=== PATIENT | female | born 1955 | race Caucasian/White ===

== ENCOUNTER 2017-06-12 11:45 | Emergency (ER) | payer MEDICARE ==
[~2017-06-12] VITALS: Ht 170.2 cm; Wt 55.3 kg
[~2017-06-12 11:45] MED LIST: CEF300 PO; CELLC500PT PO; DILT-106 PO; EST3 PO; LEVO-85 PO; LOSA25TA50 PO; METO25TA23 PO; PRE1 PO; PROG100C PO; TACR5CAP13 PO
[2017-06-12] MEDS ORDERED: TACR5CAP13 PO (11:54)
[2017-06-12] MEDS ORDERED: TACR1CAP15 PO (11:54)
--- NOTE | 2017-06-12 11:55 | ER Report ---
History and Physical Time Seen By MD: 11:54 HPI/ROS CHIEF COMPLAINT: Swelling and erythema to right lower leg HISTORY OF PRESENT ILLNESS: 59-year-old female patient presents to emergency room with implant of swelling and erythema of the right lower leg. Patient states that she's had this for the past few weeks. She states that the redness has seemed to gotten bigger. She states she's done a fair amount of traveling, flying from [place] to [place] and then [place] to [place]. She states she is not having shortness breath, she denies having any chest pain. She states that she is not had any pain with this. She is just noticed that the redness seems to be getting bigger. She denies having fevers, chills, nausea, vomiting or diarrhea. Patient does have a history of kidney transplant and is on prednisone and CellCept. REVIEW OF SYSTEMS: Respiratory: No cough, no dyspnea. Cardiovascular: No chest pain, no palpitations. Gastrointestinal: No vomiting, no abdominal pain. Musculoskeletal: No back pain. Allergies: Coded Allergies: Penicillins (Verified Allergy, Mild, RASH, 06/12/17) Sulfa (Sulfonamide Antibiotics) (Verified Allergy, Mild, RASH, 06/12/17) Tetracyclines (Verified Allergy, Mild, UNKNOWN, 06/12/17) LUPUS FLARE Home Meds Active Scripts Clindamycin Hcl (CLINDAMYCIN HCL) 300 Mg Capsule, 300 MG PO Q6H, #40 CAPSULE Prov:ESME FOX RAILROAD CAR LOADER 06/12/17 Reported Medications Nitrofurantoin Macrocrystal (NITROFURANTOIN) 50 Mg Capsule, 50 MG PO QDAY, CAPSULE 06/12/17 Lisinopril (LISINOPRIL) 5 Mg Tablet, 5 MG PO QDAY, TAB 06/12/17 Tacrolimus (PROGRAF) 1 Mg Capsule, 2 MG PO QPM, CAPSULE 06/12/17 Tacrolimus (PROGRAF) 5 Mg Capsule, 2.5 MG PO QAM, CAPSULE 06/12/17 Diltiazem Hcl (CARTIA XT) 240 Mg Cap.er.24h, 240 MG PO QDAY 01/16/16 Estrogens Conjugated (PREMARIN) 0.3 Mg Tab, 0.3 MG PO QDAY, TAB 03/27/14 Progesterone,Micronized (PROGESTERONE) 100 Mg Capsule, 2.5 MG PO DAILY, CAPSULE 03/27/14 Prednisone (PREDNISONE) 1 Mg Tab, 3 MG PO QDAY, TAB 03/27/14 Mycophenolate Mofetil (CELLCEPT) 500 Mg Tab, 500 MG PO BID, TAB 2 in am and one in pm 03/27/14 Discontinued Reported Medications Losartan Potassium (LOSARTAN POTASSIUM) 25 Mg Tablet, 25 MG PO QDAY 01/16/16 Tacrolimus (PROGRAF) 5 Mg Capsule, 2.5 MG PO BID, CAPSULE 03/27/14 Discontinued Scripts Cefdinir 300 Mg Cap (OMNICEF 300 MG CAP (OR EQUIV)) 300 Mg Capsule, 300 MG PO BID, #14 CAPSULE 0 Refills Prov:SHARON ALEMAN MD 01/16/16 Past Medical/Surgical History Patient has a past medical history of lupus, kidney transplant, rare alcohol use. Patient has surgical history of kidney transplant. Reviewed Nurses Notes: Yes Hx Smoking: No Smoking Status: Never Smoker Hx Substance Use Disorder: No Hx Alcohol Use: Yes (rare) Constitutional Vital Sign - Last 24 Hours 06/12/17 06/12/17 06/12/17 06/12/17 11:50 11:50 11:54 12:00 Temp 98.6 Pulse 90 Resp 16 B/P (MAP) 150/88 177/90 (119) 150/88 (108) 165/93 (117) Pulse Ox 97 O2 Delivery Room Air 06/12/17 06/12/17 06/12/17 06/12/17 12:15 12:30 12:45 13:00 Pulse 85 91 B/P (MAP) 150/98 (115) 161/90 (113) Pulse Ox 96 97 06/12/17 06/12/17 06/12/17 13:15 13:20 13:30 Pulse 90 92 92 B/P (MAP) 174/93 (120) Pulse Ox 97 97 97 Physical Exam General Appearance: The patient is alert, has no immediate need for airway protection and no current signs of toxicity. ENT: Tympanic membranes are pearly-moreno, auditory canals are patent, mucous membranes are moist. Respiratory: Chest is non tender, lungs are clear to auscultation. Cardiac: regular rate and rhythm Gastrointestinal: Abdomen is soft and non tender, no masses, bowel sounds normal. Musculoskeletal: Neck: Neck is supple and non tender. Extremities have full range of motion and are non tender. Skin: No rashes or lesions. The right lower leg is erythematous, warm to the touch, mild tenderness to palpation. DIFFERENTIAL DIAGNOSIS: After history and physical exam differential diagnosis was considered for cellulitis, DVT. Medical Decision Making Data Points Result Diagram: 06/12/17 1208 06/12/17 1208 Laboratory Hematology Test 06/12/17 12:08 Red Blood Count 3.69 M/uL (4.17-5.56) Mean Corpuscular Volume 86.3 fL (80.0-96.0) Mean Corpuscular Hemoglobin 29.3 pg (26.0-33.0) Mean Corpuscular Hemoglobin Concent 33.9 g/dL (32.0-36.0) Red Cell Distribution Width 18.0 % (11.5-14.5) Mean Platelet Volume 6.9 fL (7.2-11.1) Neutrophils (%) (Auto) 72.0 % (39.4-72.5) Lymphocytes (%) (Auto) 12.2 % (17.6-49.6) Monocytes (%) (Auto) 13.8 % (4.1-12.4) Eosinophils (%) (Auto) 1.5 % (0.4-6.7) Basophils (%) (Auto) 0.5 % (0.3-1.4) Nucleated RBC Relative Count (auto) 0.0 /100WBC Neutrophils # (Auto) 6.1 K/uL (2.0-7.4) Lymphocytes # (Auto) 1.0 K/uL (1.3-3.6) Monocytes # (Auto) 1.2 K/uL (0.3-1.0) Eosinophils # (Auto) 0.1 K/uL (0.0-0.5) Basophils # (Auto) 0.0 K/uL (0.0-0.1) Nucleated RBC Absolute Count (auto) 0.00 K/uL Prothrombin Time 13.8 seconds (12.0-14.4) Prothromb Time International Ratio 1.06 Activated Partial Thromboplast Time 27 seconds (23-35) Sodium Level 137 mmol/L (137-145) Potassium Level 3.4 mmol/L (3.5-5.0) Chloride Level 104 mmol/L (98-107) Carbon Dioxide Level 22 mmol/L (22-31) Blood Urea Nitrogen 27 mg/dl (7-18) Creatinine 1.40 mg/dl (0.52-1.04) Glomerular Filtration Rate Calc 38.1 Random Glucose 86 mg/dl (75-110) Calcium Level 9.9 mg/dl (8.4-10.2) Total Bilirubin 0.5 mg/dl (0.2-1.3) Aspartate Amino Transf (AST/SGOT) 26 U/L (0-35) Alanine Aminotransferase (ALT/SGPT) 32 U/L (0-56) Alkaline Phosphatase 60 U/L (0-126) Total Protein 6.2 gm/dl (6.3-8.2) Albumin 3.6 g/dl (3.5-5.0) Chemistry Test 06/12/17 12:08 White Blood Count 8.5 k/uL (4.5-11.0) Red Blood Count 3.69 M/uL (4.17-5.56) Hemoglobin 10.8 g/dL (12.0-16.0) Hematocrit 31.9 % (34.0-47.0) Mean Corpuscular Volume 86.3 fL (80.0-96.0) Mean Corpuscular Hemoglobin 29.3 pg (26.0-33.0) Mean Corpuscular Hemoglobin Concent 33.9 g/dL (32.0-36.0) Red Cell Distribution Width 18.0 % (11.5-14.5) Platelet Count 232 K/uL (150-450) Mean Platelet Volume 6.9 fL (7.2-11.1) Neutrophils (%) (Auto) 72.0 % (39.4-72.5) Lymphocytes (%) (Auto) 12.2 % (17.6-49.6) Monocytes (%) (Auto) 13.8 % (4.1-12.4) Eosinophils (%) (Auto) 1.5 % (0.4-6.7) Basophils (%) (Auto) 0.5 % (0.3-1.4) Nucleated RBC Relative Count (auto) 0.0 /100WBC Neutrophils # (Auto) 6.1 K/uL (2.0-7.4) Lymphocytes # (Auto) 1.0 K/uL (1.3-3.6) Monocytes # (Auto) 1.2 K/uL (0.3-1.0) Eosinophils # (Auto) 0.1 K/uL (0.0-0.5) Basophils # (Auto) 0.0 K/uL (0.0-0.1) Nucleated RBC Absolute Count (auto) 0.00 K/uL Prothrombin Time 13.8 seconds (12.0-14.4) Prothromb Time International Ratio 1.06 Activated Partial Thromboplast Time 27 seconds (23-35) Glomerular Filtration Rate Calc 38.1 Calcium Level 9.9 mg/dl (8.4-10.2) Total Bilirubin 0.5 mg/dl (0.2-1.3) Aspartate Amino Transf (AST/SGOT) 26 U/L (0-35) Alanine Aminotransferase (ALT/SGPT) 32 U/L (0-56) Alkaline Phosphatase 60 U/L (0-126) Total Protein 6.2 gm/dl (6.3-8.2) Albumin 3.6 g/dl (3.5-5.0) Coagulation Test 06/12/17 12:08 Prothrombin Time 13.8 seconds Prothromb Time International Ratio 1.06 Activated Partial Thromboplast Time 27 seconds EKG/Imaging Imaging EXAMINATION: RIGHT LOWER EXTREMITY DOPPLER VENOUS ULTRASOUND DATE: 06/12/2017 12:01 PM INDICATION: Right lower extremity swelling and erythema. TECHNIQUE: Grayscale, color and pulsed Doppler ultrasound was performed of the right lower extremity veins to evaluate for deep venous thrombosis. COMPARISON: None. FINDINGS: The right common femoral, superficial femoral, and popliteal veins are compressible with normal flow on color Doppler and preserved venous waveform variation. There is also normal color Doppler flow in the profunda femoris and greater saphenous veins. The right posterior tibial and peroneal veins have patent color Doppler flow. The contralateral left common femoral vein demonstrates normal flow on color Doppler and respiratory variations on pulsed Doppler. IMPRESSION: No evidence of deep venous thrombosis in the right lower extremity. Report Dictated By: Lucio Lu MD at 06/12/2017 1:12 PM Report E-Signed By: Lucio Lu MD at 06/12/2017 1:13 PM ED Course/Re-evaluation ED Course Patient was managed exam room, history and physical were obtained. Differential diagnoses were considered. On examination patient has swelling, erythema to the right lower leg. Is warm to the touch. A CBC, CMP, PT, PTT were done. The labs were fairly unremarkable., Patient had no elevated white blood cell, no left shift. Ultrasound was done of the right lower extremity which was negative for DVTs. I discussed the findings with the patient. We will go ahead and discharge patient home at this time. We'll place her on clindamycin 300 mg 4 times a day for 10 days. She is to follow-up with primary care provider and automation sales manager upon returning to [place]. Patient verbalized understanding and agreement. Decision to Disposition Date: Jun 12, 2017 Decision to Disposition Time: 13:20 Depart Departure Latest Vital Signs Vital Signs Date Time Temp Pulse Resp B/P (MAP) Pulse Ox O2 Delivery O2 Flow Rate FiO2 06/12/17 13:30 92 174/93 (120) 97 06/12/17 11:50 98.6 16 Room Air Impression: Primary Impression: Cellulitis Condition: Improved Disposition: HOME OR SELF-CARE New Scripts Clindamycin Hcl (CLINDAMYCIN HCL) 300 Mg Capsule 300 MG PO Q6H, #40 CAPSULE Prov: ESME FOX 06/12/17 Patient Instructions: Cellulitis (ED) Additional Instructions: Increase fluid intake. Get plenty of rest. Continue with your normal medications. Continue with your normal diet. Return to the ER if condition worsens. This should be improving in the next 72 hours. If there is no improvement return to the ER. Problem Qualifiers Primary Impression: Cellulitis Site of cellulitis: extremity Site of cellulitis of extremity: lower extremity Laterality: right Qualified Codes: L03.115 - Cellulitis of right lower limb ESME FOX Jun 12, 2017 11:55
[2017-06-12 12:36] LABS: PLATELET COUNT, AUTOMATED 232 K/uL (150-450)
[2017-06-12 12:58] LABS: INR 1.06
[2017-06-12] MEDS ORDERED: LISI5TAB25 PO (13:08)
[2017-06-12] MEDS ORDERED: NITR50CA35 PO (13:08)
--- NOTE | 2017-06-12 13:17 | RADIOLOGY IMAGING REPORT ---
FACILITY: [facility] PATIENT NAME: Michelle Lam : 1955 MR: [id number] V: [id number] EXAM DATE: ORDERING PHYSICIAN: ESME FOX TECHNOLOGIST: Location: [facility] - [place] Patient: Michelle Lam : 1955 Visit/Account:[id number] Date of Sevice: 06/12/2017 EXAMINATION: RIGHT LOWER EXTREMITY DOPPLER VENOUS ULTRASOUND DATE: 06/12/2017 12:01 PM INDICATION: Right lower extremity swelling and erythema. TECHNIQUE: Grayscale, color and pulsed Doppler ultrasound was performed of the right lower extremity veins to evaluate for deep venous thrombosis. COMPARISON: None. FINDINGS: The right common femoral, superficial femoral, and popliteal veins are compressible with normal flow on color Doppler and preserved venous waveform variation. There is also normal color Doppler flow in the profunda femoris and greater saphenous veins. The right posterior tibial and peroneal veins have patent color Doppler flow. The contralateral left common femoral vein demonstrates normal flow on color Doppler and respiratory variations on pulsed Doppler. IMPRESSION: No evidence of deep venous thrombosis in the right lower extremity. Report Dictated By: Lucio Lu MD at 06/12/2017 1:12 PM Report E-Signed By: Lucio Lu MD at 06/12/2017 1:13 PM WSN:[id number]
[2017-06-12] MEDS ORDERED: CLIN300C99 PO (13:19)
[2017-06-12 13:30] VITALS: BP 174/93
== END 2017-06-12 13:28 | disposition home or self-care (01) ==
LOC: ER 11:59
DX: L03.115 Cellulitis of right lower limb (principal)
CPT/HCPCS: 36415; 82040; 82247; 82310; 82374; 82435; 82565; 82947; 84075; 84132; 84155; 84295; 84450; 84460; 84520; 85025; 85610; 85730; 99283

== ENCOUNTER 2017-08-27 14:31 | Emergency (ER) | payer MEDICARE ==
[~2017-08-27 14:31] MED LIST changes: +CLIN300C99 PO; +LISI5TAB25 PO; +NITR50CA35 PO; +TACR1CAP15 PO
[2017-08-27] MEDS ORDERED: LOSA25TA50 PO (14:39)
[2017-08-27] MEDS ORDERED: DILT120C28 PO (14:39)
[2017-08-27] MEDS ORDERED: ROSU5TAB8 PO (14:39)
--- NOTE | 2017-08-27 14:48 | ER Report ---
History and Physical Time Seen By MD: 14:38 Hx. of Stated Complaint: LEFT HAND PAIN AND SWELLING SINCE MONDAY. DENIES INJURY - "I THOUGHT I JUST SLEPT ON IT WRONG" HPI/ROS CHIEF COMPLAINT: Left wrist and hand swelling HISTORY OF PRESENT ILLNESS: Pt a 61-year-old female who presents to ED with complaint of left wrist and hand swelling that she has noted for the past 4 days. She states that she initially thought that she slept on her hand that was the reason for similar swelling. She states that she picks it has been getting better with her prednisone. She takes this for lupus. Patient states that she is not having much pain with the swelling but states that most of the swelling has actually been in her left ulnar wrist area as well as her left thumb area. There appears to be some slight redness on the left wrist area. Patient states that she does have a history of cellulitis and is immunocompromised due to a kidney transplant. She states that she is concerned about the possibility of infection. She denies any fever. Patient states that she has not had any joint issues with her lupus in the past. REVIEW OF SYSTEMS: Constitutional: No fever, no chills. Cardiovascular: No chest pain, no palpitations. Respiratory: No cough, no shortness of breath. Musculoskeletal: See history of present illness. Skin: See history of present illness. Neurological: No headache. Allergies: Coded Allergies: Penicillins (Verified Allergy, Mild, RASH, 06/12/17) Sulfa (Sulfonamide Antibiotics) (Verified Allergy, Mild, RASH, 06/12/17) Tetracyclines (Verified Allergy, Mild, UNKNOWN, 06/12/17) LUPUS FLARE Home Meds Active Scripts Cephalexin 500 Mg Tab (KEFLEX 500 MG TAB) 500 Mg Tablet, 500 MG PO Q8H, #30 TAB Prov:CANDACE BENÍTEZ PA-C 08/27/17 Reported Medications Rosuvastatin Calcium (CRESTOR) 5 Mg Tablet, 5 MG PO QDAY 08/27/17 Losartan Potassium (LOSARTAN POTASSIUM) 25 Mg Tablet, 25 MG PO QDAY 08/27/17 Diltiazem Hcl (DILTIAZEM 24HR ER) 120 Mg Cap.er.24h, 120 MG PO 08/27/17 Tacrolimus (PROGRAF) 1 Mg Capsule, 2 MG PO QPM, CAPSULE 06/12/17 Tacrolimus (PROGRAF) 5 Mg Capsule, 2.5 MG PO QAM, CAPSULE 06/12/17 Estrogens Conjugated (PREMARIN) 0.3 Mg Tab, 0.3 MG PO QDAY, TAB 03/27/14 Progesterone,Micronized (PROGESTERONE) 100 Mg Capsule, 2.5 MG PO DAILY, CAPSULE 03/27/14 Prednisone (PREDNISONE) 1 Mg Tab, 3 MG PO QDAY, TAB 03/27/14 Mycophenolate Mofetil (CELLCEPT) 500 Mg Tab, 500 MG PO BID, TAB 2 in am and one in pm 03/27/14 Discontinued Reported Medications Nitrofurantoin Macrocrystal (NITROFURANTOIN) 50 Mg Capsule, 50 MG PO QDAY, CAPSULE 06/12/17 Lisinopril (LISINOPRIL) 5 Mg Tablet, 5 MG PO QDAY, TAB 06/12/17 Diltiazem Hcl (CARTIA XT) 240 Mg Cap.er.24h, 240 MG PO QDAY 01/16/16 Discontinued Scripts Clindamycin Hcl (CLINDAMYCIN HCL) 300 Mg Capsule, 300 MG PO Q6H, #40 CAPSULE Prov:ESME FOX COSMETIC CHEMIST 06/12/17 Reviewed Nurses Notes: Yes Old Medical Records Reviewed: Yes Hx Smoking: No Smoking Status: Never Smoker Hx Substance Use Disorder: No Hx Alcohol Use: Yes (rare) Constitutional Vital Sign - Last 24 Hours 08/27/17 08/27/17 14:35 16:01 Temp 98.4 Pulse 100 78 Resp 16 16 B/P (MAP) 153/83 138/74 (95) Pulse Ox 95 94 O2 Delivery Room Air Room Air Physical Exam General Appearance: The patient is alert, has no immediate need for airway protection and no current signs of toxicity. Patient appears to be in no acute distress. Respiratory: Chest is non tender, lungs are clear to auscultation. Cardiac: regular rate and rhythm Musculoskeletal: Neck: Neck is supple and non tender. There is some mild swelling of the left ulnar posterior aspect of her wrist. There is slight erythema in this area. No pain with palpation of the area. There is again some minimal swelling along the left thumb area particularly in the left PIP. No erythema in this area. Full range of motion left wrist and left hand/fingers with no pain. Radial pulse is 2+ with normal capillary refill. Normal sensation. Skin: No rashes or lesions. DIFFERENTIAL DIAGNOSIS: After history and physical exam differential diagnosis was considered for left wrist and hand swelling including arthritic concern, cellulitis, soft tissue swelling, DVT. Medical Decision Making Data Points Result Diagram: 08/27/17 1501 08/27/17 1501 Laboratory Hematology Test 08/27/17 15:01 Red Blood Count 4.03 M/uL (4.17-5.56) Mean Corpuscular Volume 85.9 fL (80.0-96.0) Mean Corpuscular Hemoglobin 29.1 pg (26.0-33.0) Mean Corpuscular Hemoglobin Concent 33.8 g/dL (32.0-36.0) Red Cell Distribution Width 16.5 % (11.5-14.5) Mean Platelet Volume 7.2 fL (7.2-11.1) Neutrophils (%) (Auto) 83.0 % (39.4-72.5) Lymphocytes (%) (Auto) 8.1 % (17.6-49.6) Monocytes (%) (Auto) 8.3 % (4.1-12.4) Eosinophils (%) (Auto) 0.1 % (0.4-6.7) Basophils (%) (Auto) 0.5 % (0.3-1.4) Nucleated RBC Relative Count (auto) 0.2 /100WBC Neutrophils # (Auto) 7.9 K/uL (2.0-7.4) Lymphocytes # (Auto) 0.8 K/uL (1.3-3.6) Monocytes # (Auto) 0.8 K/uL (0.3-1.0) Eosinophils # (Auto) 0.0 K/uL (0.0-0.5) Basophils # (Auto) 0.0 K/uL (0.0-0.1) Nucleated RBC Absolute Count (auto) 0.02 K/uL Erythrocyte Sedimentation Rate 30 mm/HOUR (0-30) Sodium Level 138 mmol/L (137-145) Potassium Level 4.1 mmol/L (3.5-5.0) Chloride Level 104 mmol/L (98-107) Carbon Dioxide Level 20 mmol/L (22-31) Blood Urea Nitrogen 42 mg/dl (7-18) Creatinine 1.60 mg/dl (0.52-1.04) Glomerular Filtration Rate Calc 32.7 Random Glucose 115 mg/dl (75-110) Uric Acid 7.0 mg/dl (2.5-7.5) Calcium Level 10.3 mg/dl (8.4-10.2) Total Bilirubin 0.4 mg/dl (0.2-1.3) Aspartate Amino Transf (AST/SGOT) 23 U/L (0-35) Alanine Aminotransferase (ALT/SGPT) 33 U/L (0-56) Alkaline Phosphatase 64 U/L (0-126) C-Reactive Protein 1.5 mg/dl (<1.0) Total Protein 7.0 gm/dl (6.3-8.2) Albumin 4.0 g/dl (3.5-5.0) Chemistry Test 08/27/17 15:01 White Blood Count 9.5 k/uL (4.5-11.0) Red Blood Count 4.03 M/uL (4.17-5.56) Hemoglobin 11.7 g/dL (12.0-16.0) Hematocrit 34.6 % (34.0-47.0) Mean Corpuscular Volume 85.9 fL (80.0-96.0) Mean Corpuscular Hemoglobin 29.1 pg (26.0-33.0) Mean Corpuscular Hemoglobin Concent 33.8 g/dL (32.0-36.0) Red Cell Distribution Width 16.5 % (11.5-14.5) Platelet Count 217 K/uL (150-450) Mean Platelet Volume 7.2 fL (7.2-11.1) Neutrophils (%) (Auto) 83.0 % (39.4-72.5) Lymphocytes (%) (Auto) 8.1 % (17.6-49.6) Monocytes (%) (Auto) 8.3 % (4.1-12.4) Eosinophils (%) (Auto) 0.1 % (0.4-6.7) Basophils (%) (Auto) 0.5 % (0.3-1.4) Nucleated RBC Relative Count (auto) 0.2 /100WBC Neutrophils # (Auto) 7.9 K/uL (2.0-7.4) Lymphocytes # (Auto) 0.8 K/uL (1.3-3.6) Monocytes # (Auto) 0.8 K/uL (0.3-1.0) Eosinophils # (Auto) 0.0 K/uL (0.0-0.5) Basophils # (Auto) 0.0 K/uL (0.0-0.1) Nucleated RBC Absolute Count (auto) 0.02 K/uL Erythrocyte Sedimentation Rate 30 mm/HOUR (0-30) Glomerular Filtration Rate Calc 32.7 Uric Acid 7.0 mg/dl (2.5-7.5) Calcium Level 10.3 mg/dl (8.4-10.2) Total Bilirubin 0.4 mg/dl (0.2-1.3) Aspartate Amino Transf (AST/SGOT) 23 U/L (0-35) Alanine Aminotransferase (ALT/SGPT) 33 U/L (0-56) Alkaline Phosphatase 64 U/L (0-126) C-Reactive Protein 1.5 mg/dl (<1.0) Total Protein 7.0 gm/dl (6.3-8.2) Albumin 4.0 g/dl (3.5-5.0) EKG/Imaging Imaging Left Wrist Xrays: IMPRESSION: 1. No acute osseous abnormality left wrist. Report Dictated By: Rojelio Nguyen at 08/27/2017 3:29 PM Report E-Signed By: Rojelio Nguyen at 08/27/2017 3:31 PM Left Hand Xrays: IMPRESSION: 1.No acute osseous abnormality of the left hand Report Dictated By: Rojelio Nguyen at 08/27/2017 3:27 PM Report E-Signed By: Rojelio Nguyen at 08/27/2017 3:29 PM ED Course/Re-evaluation ED Course Will obtain labs and x-rays. 08/27/2017 3:54:17 pm - discussed all labs and imaging with patient. She didn' t have slightly elevated CRP and borderline ESR and uric acid. Her x-rays were normal. Given her history of cellulitis and immunosuppression will cover her for cellulitis with Keflex. Discussed that there is possibility this could be an arthritic flare of some type like gout. She states that her father did have gout in the past. She is on prednisone daily and this should be helpful for this. She states that it has been helping some already with this. Advised to follow-up with her primary care provider and printing services coordinator. Decision to Disposition Date: Aug 27, 2017 Decision to Disposition Time: 15:55 Depart Departure Latest Vital Signs Vital Signs Date Time Temp Pulse Resp B/P (MAP) Pulse Ox O2 Delivery O2 Flow Rate FiO2 08/27/17 16:01 78 16 138/74 (95) 94 Room Air 08/27/17 14:35 98.4 Impression: Primary Impression: Swelling of joint, wrist, left Condition: Improved Disposition: HOME OR SELF-CARE New Scripts Cephalexin 500 Mg Tab (KEFLEX 500 MG TAB) 500 Mg Tablet 500 MG PO Q8H, #30 TAB Prov: CANDACE BENÍTEZ PA-C 08/27/17 Patient Instructions: Cellulitis (ED) Additional Instructions: Monitor for any worsening swelling, redness, fever, pain. Take antibiotic as prescribed. If having any worsening or concerning symptoms. Return to the emergency department. Follow-up with primary care provider in 2-3 days. CANDACE BENÍTEZ PA-C Aug 27, 2017 14:48
[2017-08-27 15:19] LABS: PLATELET COUNT, AUTOMATED 217 K/uL (150-450)
--- NOTE | 2017-08-27 15:33 | RADIOLOGY IMAGING REPORT ---
FACILITY: [facility] - [place] PATIENT NAME: Michelle Lam : 1955 MR: [id number] V: [id number] EXAM DATE: ORDERING PHYSICIAN: CANDACE BENÍTEZ TECHNOLOGIST: [place] [facility] [place] Lam : 1955 Visit/Account:[id number] Date of Sevice: 08/27/2017 WRIST LEFT MIN 3 VIEW Indication: Left wrist pain and swelling. No known injury. Comparison: None Available. Findings: 3 views of the left wrist. No fracture or dislocation. No bony lesions or appreciable degenerative ch anges. No periosteal abnormality. Soft tissues show mild edema. No radiopaque foreign body. IMPRESSION: 1. No acute osseous abnormality left wrist. Report Dictated By: Rojelio Nguyen at 08/27/2017 3:29 PM Report E-Signed By: Rojelio Nguyen at 08/27/2017 3:31 PM WSN:[id number]
--- NOTE | 2017-08-27 15:33 | RADIOLOGY IMAGING REPORT ---
FACILITY: [facility] [place] PATIENT NAME: Michelle Lam : 1955 MR: [id number] V: [id number] EXAM DATE: ORDERING PHYSICIAN: CANDACE BENÍTEZ TECHNOLOGIST: Location: [facility] Patient: Michelle Lam : 1955 Visit/Account:[id number] Date of Sevice: 08/27/2017 HAND COMPLETE LEFT Indication: Left hand pain and swelling. No known injury. Comparison: None Available. Findings: 3 views of the left hand. No fracture or dislocation. No bony lesions or appreciable degenerative andreea nges. No periosteal abnormality. Soft tissues are unremarkable. IMPRESSION: 1.No acute osseous abnormality of the left hand Report Dictated By: Rojelio Nguyen at 08/27/2017 3:27 PM Report E-Signed By: Rojelio Nguyen at 08/27/2017 3:29 PM WSN:[id number]
[2017-08-27] MEDS ORDERED: CEPH500T7 PO (15:57)
[2017-08-27 16:01] VITALS: BP 138/74
== END 2017-08-27 16:01 | disposition home or self-care (01) ==
LOC: ER 14:50
DX: M79.89 Other specified soft tissue disorders (principal)
CPT/HCPCS: 36415; 82040; 82247; 82310; 82374; 82435; 82565; 82947; 84075; 84132; 84155; 84295; 84450; 84460; 84520; 84550; 85025; 85651; 86140; 99282

== ENCOUNTER 2017-09-01 15:47 | Emergency (ER) | payer MEDICARE ==
[~2017-09-01 15:47] MED LIST changes: +CEPH500T7 PO; +DILT120C28 PO; +ROSU5TAB8 PO
[2017-09-01] MEDS ORDERED: CLINDAMYCIN 600 MG/4 ML 600 MG in NS(*) 0.9% 100 ML BAG 100 ML IVPB ONE (16:00)
--- NOTE | 2017-09-01 16:17 | ER Report ---
History and Physical Time Seen By MD: 15:51 Hx. of Stated Complaint: LEFT HYAND SWOLLEN. TAKING KELFEX AFTER BEING SEEN ON SUN HPI/ROS CHIEF COMPLAINT: swollen hand HISTORY OF PRESENT ILLNESS: Pt here for evaluation of swelling of left hand.Pt states that she woke up last Monday with her left hand swollen. Does not recall any trauma. Pt states that it improved two days afterwards but then came back. Pain and swelling at the radial aspect of left wrist that moves down the hand. Pt is from [place] and flew out here this week. Came to ED on Monday and had uric acid checked and was normal so was started on abx for possible cellulitis. PT states she has made an appt with her doctor in [place] on Monday but she sent him a picture of her hand today and was told to return. Pts left hand more swollen. pt denies numbness. pt is able to make a fist but states that the hand feels tight. Selling is from distal ulna/radius down to hand. No proximal arm swelling. pt is on immunosuppressives for kidney transplant and lupus. No fevers. REVIEW OF SYSTEMS: GEN: no fever Respiratory: No cough, no dyspnea. Cardiovascular: No chest pain, no palpitations. Gastrointestinal: No vomiting, no abdominal pain. Musculoskeletal: No back pain.+left hand swelling Skin: + erythema distal radius/ulnar down to thumb Neuro; neg numbness Allergies: Coded Allergies: Penicillins (Verified Allergy, Mild, RASH, 09/01/17) Sulfa (Sulfonamide Antibiotics) (Verified Allergy, Mild, RASH, 09/01/17) Tetracyclines (Verified Allergy, Mild, UNKNOWN, 09/01/17) LUPUS FLARE Home Meds Active Scripts Cephalexin 500 Mg Tab (KEFLEX 500 MG TAB) 500 Mg Tablet, 500 MG PO Q8H, #30 TAB Prov:CANDACE BENÍTEZ PA-C 08/27/17 Reported Medications Rosuvastatin Calcium (CRESTOR) 5 Mg Tablet, 5 MG PO QDAY 08/27/17 Losartan Potassium (LOSARTAN POTASSIUM) 25 Mg Tablet, 25 MG PO QDAY 08/27/17 Diltiazem Hcl (DILTIAZEM 24HR ER) 120 Mg Cap.er.24h, 120 MG PO 08/27/17 Tacrolimus (PROGRAF) 1 Mg Capsule, 2 MG PO QPM, CAPSULE 06/12/17 Tacrolimus (PROGRAF) 5 Mg Capsule, 2.5 MG PO QAM, CAPSULE 06/12/17 Estrogens Conjugated (PREMARIN) 0.3 Mg Tab, 0.3 MG PO QDAY, TAB 03/27/14 Progesterone,Micronized (PROGESTERONE) 100 Mg Capsule, 2.5 MG PO DAILY, CAPSULE 03/27/14 Prednisone (PREDNISONE) 1 Mg Tab, 3 MG PO QDAY, TAB 03/27/14 Mycophenolate Mofetil (CELLCEPT) 500 Mg Tab, 500 MG PO BID, TAB 2 in am and one in pm 03/27/14 Discontinued Reported Medications Nitrofurantoin Macrocrystal (NITROFURANTOIN) 50 Mg Capsule, 50 MG PO QDAY, CAPSULE 06/12/17 Lisinopril (LISINOPRIL) 5 Mg Tablet, 5 MG PO QDAY, TAB 06/12/17 Diltiazem Hcl (CARTIA XT) 240 Mg Cap.er.24h, 240 MG PO QDAY 01/16/16 Discontinued Scripts Clindamycin Hcl (CLINDAMYCIN HCL) 300 Mg Capsule, 300 MG PO Q6H, #40 CAPSULE Prov:ESME FOX APPARATUS LINEMAN 06/12/17 Past Medical/Surgical History Pmhx: lupus,kidney failure, cellulitis Pshx: kidney replacement Hx Smoking: No Smoking Status: Never Smoker Hx Substance Use Disorder: No Hx Alcohol Use: Yes (rare) Constitutional Vital Sign - Last 24 Hours 09/01/17 15:53 Temp 97.9 Pulse 100 Resp 12 B/P (MAP) 116/94 Pulse Ox 97 O2 Delivery Room Air Physical Exam General Appearance: The patient is alert, has no immediate need for airway protection and no signs of toxicity. Eyes: Pupils equal and round no pallor or injection, EOMI ENT: no pharyngeal erythema or exudates, Mucous membranes are moist Respiratory: There are no retractions, lungs are clear to auscultation. Cardiovascular: Regular rate and rhythm. pulses are equal and symmetrical Gastrointestinal: Abdomen is soft and non tender, no masses, bowel sounds normal, no guarding, no rigidity or rebound Neurological: Cranial nerves II-XII grossly intact, no sensory or motor loss Skin: Warm and dry, no rashes, + swelling distal radius on left down to hand with loss of visualizations of knuckles with erythema at left distal radius Musculoskeletal: Neck is supple non tender, no vertebral tenderness Extremities are nontender, non swollen and have full range of motion accept for left upper extremitty which shows + swelling from distal radius/ulna to the dorsal aspect of left hand with erythema at the distal radius to the first mcp DIFFERENTIAL DIAGNOSIS: After history and physical exam differential diagnosis was considered for cellulitis, gout Medical Decision Making Data Points Result Diagram: 09/01/17 1606 Laboratory Hematology Test 09/01/17 16:06 Red Blood Count 4.19 M/uL (4.17-5.56) Mean Corpuscular Volume 86.8 fL (80.0-96.0) Mean Corpuscular Hemoglobin 28.6 pg (26.0-33.0) Mean Corpuscular Hemoglobin Concent 32.9 g/dL (32.0-36.0) Red Cell Distribution Width 16.7 % (11.5-14.5) Mean Platelet Volume 6.9 fL (7.2-11.1) Neutrophils (%) (Auto) 87.6 % (39.4-72.5) Lymphocytes (%) (Auto) 6.8 % (17.6-49.6) Monocytes (%) (Auto) 5.4 % (4.1-12.4) Eosinophils (%) (Auto) 0.0 % (0.4-6.7) Basophils (%) (Auto) 0.2 % (0.3-1.4) Nucleated RBC Relative Count (auto) 0.1 /100WBC Neutrophils # (Auto) 6.6 K/uL (2.0-7.4) Lymphocytes # (Auto) 0.5 K/uL (1.3-3.6) Monocytes # (Auto) 0.4 K/uL (0.3-1.0) Eosinophils # (Auto) 0.0 K/uL (0.0-0.5) Basophils # (Auto) 0.0 K/uL (0.0-0.1) Nucleated RBC Absolute Count (auto) 0.01 K/uL C-Reactive Protein 1.8 mg/dl (<1.0) Chemistry Test 09/01/17 16:06 White Blood Count 7.6 k/uL (4.5-11.0) Red Blood Count 4.19 M/uL (4.17-5.56) Hemoglobin 12.0 g/dL (12.0-16.0) Hematocrit 36.4 % (34.0-47.0) Mean Corpuscular Volume 86.8 fL (80.0-96.0) Mean Corpuscular Hemoglobin 28.6 pg (26.0-33.0) Mean Corpuscular Hemoglobin Concent 32.9 g/dL (32.0-36.0) Red Cell Distribution Width 16.7 % (11.5-14.5) Platelet Count 253 K/uL (150-450) Mean Platelet Volume 6.9 fL (7.2-11.1) Neutrophils (%) (Auto) 87.6 % (39.4-72.5) Lymphocytes (%) (Auto) 6.8 % (17.6-49.6) Monocytes (%) (Auto) 5.4 % (4.1-12.4) Eosinophils (%) (Auto) 0.0 % (0.4-6.7) Basophils (%) (Auto) 0.2 % (0.3-1.4) Nucleated RBC Relative Count (auto) 0.1 /100WBC Neutrophils # (Auto) 6.6 K/uL (2.0-7.4) Lymphocytes # (Auto) 0.5 K/uL (1.3-3.6) Monocytes # (Auto) 0.4 K/uL (0.3-1.0) Eosinophils # (Auto) 0.0 K/uL (0.0-0.5) Basophils # (Auto) 0.0 K/uL (0.0-0.1) Nucleated RBC Absolute Count (auto) 0.01 K/uL C-Reactive Protein 1.8 mg/dl (<1.0) ED Course/Re-evaluation Clinical Indication for ER IV: IV Access ED Course Will start IV and give dose of abx. Decision to Disposition Date: Sep 01, 2017 Decision to Disposition Time: 16:54 Depart Departure Latest Vital Signs Vital Signs Date Time Temp Pulse Resp B/P (MAP) Pulse Ox O2 Delivery O2 Flow Rate FiO2 09/01/17 15:53 97.9 100 12 116/94 97 Room Air Impression: Primary Impression: Cellulitis Condition: Condition Unchanged Disposition: HOME OR SELF-CARE New Scripts Clindamycin Hcl (CLINDAMYCIN HCL) 150 Mg Capsule 300 MG PO TID, #42 CAPSULE Two pills three times a day until finished Prov: ADRIAN WYNN DO 09/01/17 Patient Instructions: Cellulitis (GEN) Additional Instructions: Keep your appointment with your doctor on Monday. If symptoms worsen prior to Monday please return. Stop your keflex Clindamycin 300mg three times a day. Problem Qualifiers Primary Impression: Cellulitis Site of cellulitis: extremity Site of cellulitis of extremity: upper extremity Laterality: left Qualified Codes: L03.114 - Cellulitis of left upper limb ADRIAN WYNN DO Sep 01, 2017 16:17
[2017-09-01] MEDS ORDERED: CLINDAMYCIN(*) 600 MG/NS 50 ML 50 ML IVPB ONE (16:20)
[2017-09-01 16:23] LABS: PLATELET COUNT, AUTOMATED 253 K/uL (150-450)
[2017-09-01 16:53] VITALS: BP 161/89
[2017-09-01] MEDS ORDERED: CLIN-75 PO (16:59)
== END 2017-09-01 17:05 | disposition home or self-care (01) ==
LOC: ER 15:47
DX: L03.114 Cellulitis of left upper limb (principal)
CPT/HCPCS: 36415; 85025; 86140; 87040; 96365; 99283; J3490; L3908

== ENCOUNTER 2018-01-02 09:18 | Emergency (ER) | payer MEDICARE ==
[~2018-01-02 09:18] MED LIST changes: +CLIN-75 PO
--- NOTE | 2018-01-02 09:57 | ER Report ---
History and Physical Time Seen By MD: 09:30 Hx. of Stated Complaint: pt reports pain in lower R side groin, urinary frequency HPI/ROS CHIEF COMPLAINT: dysuria, nausea HISTORY OF PRESENT ILLNESS: Pt is s/p r renal transplant in 2008; complicated only by frequent uti's, has had 2 d of dysuria, awoke with nausea, mild r lower abd/flank pain. No fevers, chills. Symptoms constant, exacerbated by urination. Nausea was improved by prednisone which she took this am. REVIEW OF SYSTEMS: Constitutional: No fever, no chills. Eyes: No discharge. ENT: No sore throat. Cardiovascular: No chest pain, no palpitations. Respiratory: No cough, no shortness of breath. Gastrointestinal: No abdominal pain, no vomiting. Genitourinary: No hematuria. Musculoskeletal: No back pain. Skin: No rashes. Neurological: No headache. Allergies: Coded Allergies: Penicillins (Verified Allergy, Mild, RASH, 09/01/17) Sulfa (Sulfonamide Antibiotics) (Verified Allergy, Mild, RASH, 09/01/17) Tetracyclines (Verified Allergy, Mild, UNKNOWN, 09/01/17) LUPUS FLARE Home Meds Active Scripts Cephalexin 500 Mg Tab (KEFLEX 500 MG TAB) 500 Mg Tablet, 500 MG PO Q6H for 7 Days, #28 TAB Prov:RINA LEE MD 01/02/18 Reported Medications Rosuvastatin Calcium (CRESTOR) 5 Mg Tablet, 5 MG PO QDAY 08/27/17 Losartan Potassium (LOSARTAN POTASSIUM) 25 Mg Tablet, 25 MG PO QDAY 08/27/17 Diltiazem Hcl (DILTIAZEM 24HR ER) 120 Mg Cap.er.24h, 120 MG PO 08/27/17 Tacrolimus (PROGRAF) 1 Mg Capsule, 2 MG PO QPM, CAPSULE 06/12/17 Tacrolimus (PROGRAF) 5 Mg Capsule, 2.5 MG PO QAM, CAPSULE 06/12/17 Estrogens Conjugated (PREMARIN) 0.3 Mg Tab, 0.3 MG PO QDAY, TAB 03/27/14 Progesterone,Micronized (PROGESTERONE) 100 Mg Capsule, 2.5 MG PO DAILY, CAPSULE 03/27/14 Prednisone (PREDNISONE) 1 Mg Tab, 3 MG PO QDAY, TAB 03/27/14 Mycophenolate Mofetil (CELLCEPT) 500 Mg Tab, 500 MG PO BID, TAB 2 in am and one in pm 03/27/14 Discontinued Scripts Clindamycin Hcl (CLINDAMYCIN HCL) 150 Mg Capsule, 300 MG PO TID, #42 CAPSULE Two pills three times a day until finished Prov:ADRIAN WYNN V DO 09/01/17 Cephalexin 500 Mg Tab (KEFLEX 500 MG TAB) 500 Mg Tablet, 500 MG PO Q8H, #30 TAB Prov:CANDACE BENÍTEZ PA-C 08/27/17 Past Medical/Surgical History r renal transplant 2008 Reviewed Nurses Notes: Yes Hx Smoking: No Smoking Status: Never Smoker Hx Substance Use Disorder: No Hx Alcohol Use: Yes (rare) Constitutional Vital Sign - Last 24 Hours 01/02/18 01/02/18 01/02/18 01/02/18 09:18 09:25 09:26 09:33 Temp 98.2 Pulse ??? 101 99 Resp 16 B/P (MAP) 126/70 (88) 126/70 Pulse Ox 95 96 O2 Delivery Room Air 01/02/18 01/02/18 01/02/18 01/02/18 09:48 10:03 10:18 10:33 Pulse ??? 91 93 ??? Pulse Ox 97 96 01/02/18 01/02/18 10:48 11:03 Pulse ? Physical Exam General Appearance: The patient is alert, has no immediate need for airway protection and no signs of toxicity. [ ] Eyes: Pupils equal and round no pallor or injection. ENT, Mouth: Mucous membranes are moist. Respiratory: There are no retractions, lungs are clear to auscultation. Cardiovascular: Regular rate and rhythm. [ ] Gastrointestinal: Abdomen ; very mild rlq ttp at area of renal transplant. No r cvat Neurological: alert, oriented, moves all ext Skin: Warm and dry, no rashes. Musculoskeletal: Neck is supple non tender. Extremities are nontender, nonswollen and have full range of motion. [ ] DIFFERENTIAL DIAGNOSIS: After history and physical exam differential diagnosis was considered for transplant complictaion, uti/pyelo, surgical abd emergency or other emergent etiology Medical Decision Making Data Points Result Diagram: 01/02/18 0957 01/02/18 0957 Laboratory Hematology Test 01/02/18 09:20 01/02/18 09:57 Urine Color Yellow Urine Clarity Turbid Urine pH 5.0 pH (4.8-9.5) Urine Specific [place] 1.011 Urine Protein 100 mg/dL (NEGATIVE) Urine Glucose (UA) Negative mg/dL (NEGATIVE) Urine Ketones Negative mg/dL (NEGATIVE) Urine Blood Moderate (NEGATIVE) Urine Nitrite Positive (NEGATIVE) Urine Bilirubin Negative (NEGATIVE) Urine Urobilinogen Negative mg/dL (0.2-1.9) Urine Leukocyte Esterase Large (NEGATIVE) Urine RBC 37 /HPF (0-2/HPF) Urine WBC 4575 /HPF (0-5/HPF) Urine WBC Clumps Many /HPF Urine Squamous Epithelial Cells Many /LPF (</=FEW) Urine Bacteria Few /HPF (NONE-FEW) Urine Mucus None /HPF (NONE-FEW) Red Blood Count 3.57 M/uL (4.17-5.56) Mean Corpuscular Volume 85.2 fL (80.0-96.0) Mean Corpuscular Hemoglobin 28.3 pg (26.0-33.0) Mean Corpuscular Hemoglobin Concent 33.2 g/dL (32.0-36.0) Red Cell Distribution Width 15.8 % (11.5-14.5) Mean Platelet Volume 7.3 fL (7.2-11.1) Neutrophils % (Manual) 89 % (39.4-72.5) Lymphocytes % (Manual) 4 % (17.6-49.6) Monocytes % (Manual) 7 % (4.1-12.4) Eosinophils % (Manual) 0 % (0.4-6.7) Basophils % (Manual) 0 % (0.3-1.4) Sodium Level 138 mmol/L (137-145) Potassium Level 4.0 mmol/L (3.5-5.0) Chloride Level 105 mmol/L (98-107) Carbon Dioxide Level 22 mmol/L (22-31) Blood Urea Nitrogen 36 mg/dl (7-18) Creatinine 2.20 mg/dl (0.52-1.04) Glomerular Filtration Rate Calc 22.5 Random Glucose 96 mg/dl (75-110) Calcium Level 9.2 mg/dl (8.4-10.2) Chemistry Test 01/02/18 09:20 01/02/18 09:57 Urine Color Yellow Urine Clarity Turbid Urine pH 5.0 pH (4.8-9.5) Urine Specific [place] 1.011 Urine Protein 100 mg/dL (NEGATIVE) Urine Glucose (UA) Negative mg/dL (NEGATIVE) Urine Ketones Negative mg/dL (NEGATIVE) Urine Blood Moderate (NEGATIVE) Urine Nitrite Positive (NEGATIVE) Urine Bilirubin Negative (NEGATIVE) Urine Urobilinogen Negative mg/dL (0.2-1.9) Urine Leukocyte Esterase Large (NEGATIVE) Urine RBC 37 /HPF (0-2/HPF) Urine WBC 4575 /HPF (0-5/HPF) Urine WBC Clumps Many /HPF Urine Squamous Epithelial Cells Many /LPF (</=FEW) Urine Bacteria Few /HPF (NONE-FEW) Urine Mucus None /HPF (NONE-FEW) White Blood Count 15.8 k/uL (4.5-11.0) Red Blood Count 3.57 M/uL (4.17-5.56) Hemoglobin 10.1 g/dL (12.0-16.0) Hematocrit 30.4 % (34.0-47.0) Mean Corpuscular Volume 85.2 fL (80.0-96.0) Mean Corpuscular Hemoglobin 28.3 pg (26.0-33.0) Mean Corpuscular Hemoglobin Concent 33.2 g/dL (32.0-36.0) Red Cell Distribution Width 15.8 % (11.5-14.5) Platelet Count 190 K/uL (150-450) Mean Platelet Volume 7.3 fL (7.2-11.1) Neutrophils % (Manual) 89 % (39.4-72.5) Lymphocytes % (Manual) 4 % (17.6-49.6) Monocytes % (Manual) 7 % (4.1-12.4) Eosinophils % (Manual) 0 % (0.4-6.7) Basophils % (Manual) 0 % (0.3-1.4) Glomerular Filtration Rate Calc 22.5 Calcium Level 9.2 mg/dl (8.4-10.2) Urinalysis Test 01/02/18 09:20 Urine Color Yellow Urine Clarity Turbid Urine pH 5.0 pH (4.8-9.5) Urine Specific [place] 1.011 Urine Protein 100 mg/dL (NEGATIVE) Urine Glucose (UA) Negative mg/dL (NEGATIVE) Urine Ketones Negative mg/dL (NEGATIVE) Urine Blood Moderate (NEGATIVE) Urine Nitrite Positive (NEGATIVE) Urine Bilirubin Negative (NEGATIVE) Urine Urobilinogen Negative mg/dL (0.2-1.9) Urine Leukocyte Esterase Large (NEGATIVE) Urine RBC 37 /HPF (0-2/HPF) Urine WBC 4575 /HPF (0-5/HPF) Urine WBC Clumps Many /HPF Urine Squamous Epithelial Cells Many /LPF (</=FEW) Urine Bacteria Few /HPF (NONE-FEW) Urine Mucus None /HPF (NONE-FEW) ED Course/Re-evaluation ED Course pt in nad, tolerates keflex. I called her transplant endoscopy support specialist given arden and uti; he confirmed that prior cultures are susceptible to keflex. Pt to call for f/u. Will d/c wtih SRP's. Decision to Disposition Date: Jan 02, 2018 Decision to Disposition Time: 13:52 Depart Departure Latest Vital Signs Vital Signs Date Time Temp Pulse Resp B/P (MAP) Pulse Ox O2 Delivery O2 Flow Rate FiO2 01/02/18 11:03 ??? 01/02/18 10:18 96 01/02/18 09:26 98.2 16 126/70 Room Air Impression: Primary Impression: UTI (urinary tract infection) Additional Impression: ARDEN (acute kidney injury) Condition: Improved Disposition: HOME OR SELF-CARE New Scripts Cephalexin 500 Mg Tab (KEFLEX 500 MG TAB) 500 Mg Tablet 500 MG PO Q6H for 7 Days, #28 TAB Prov: RINA LEE MD 01/02/18 Patient Instructions: Acute Kidney Injury (DC), Kidney Infection (ED) Additional Instructions: As we discussed, keep hydrated, call your doctor for close follow up, return for any concerns. Problem Qualifiers Primary Impression: UTI (urinary tract infection) Urinary tract infection type: acute cystitis Hematuria presence: without hematuria Qualified Codes: N30.00 - Acute cystitis without hematuria RINA LEE MD Jan 02, 2018 09:57
[2018-01-02 10:07] LABS: PLATELET COUNT, AUTOMATED 190 K/uL (150-450)
[2018-01-02] MEDS ORDERED: CEPHALEXIN MONO 500 MG CAP PO ONE (11:30)
[2018-01-02] MEDS ORDERED: CEPH500T7 PO (12:49)
--- NOTE | 2018-01-02 13:39 | RADIOLOGY IMAGING REPORT ---
FACILITY: [facility] - [place] PATIENT NAME: Michelle Lam : 1955 MR: [id number] V: [id number] EXAM DATE: ORDERING PHYSICIAN: RINA LEE TECHNOLOGIST: Location: [facility] - [place] Patient: Michelle Lam : 1955 Visit/Account:[id number] Date of Sevice: 01/02/2018 Exam type: ARTERIAL RENAL DUPLEX DOPPLER History: renal transplant possible stenosis Comparison: None. Findings: There is incidental note of a gallstone. There Is a transplanted right kidney in the pelvis. This kidney measures 12.1 x 5.5 x 7 cm this kid neys of normal echogenicity. There is minimal pyelocaliectasis. Resistive indices of the transplanted right kidney are as follows: Superior pole segmental artery 0.6 6, superior pole interlobar artery 0.65, superior pole arcuate artery 0.60 Mid segmental artery 0.79, mid interlobar artery 0.68, mid arcuate artery 0.75 Inferior pole segmental artery 0.72, inferior pole interlobar artery 0.57, interpolar arch with arter y 0.51 The renal artery peak systolic velocity at the anastomosis is 86 cm/s with resistive index is 0.84 an d at the renal hilum 100 cm/s. The resistive index of 0.79 The peak systolic velocity in the right iliac artery above the anastomosis is 181 cm/s and below the anastomosis 165 g/s. The RAR ratio at the anastomosis is 0.68 and at the renal hilum is 0.79. The right ureteral jet is i dentified The left kidney measures 8 x 3.1 x 3.6 cm and appears echogenic. Resistive indices of the left kidne y are swallows: Superior pole arcuate artery 0.53, superior pole interlobar artery 0.68, superior delia e segmental artery 0.78 Mid arcuate artery 0.71, mid interlobar artery 0.75, mid segmental artery 0.88 Inferior Pole arcuate artery 0.57, inferior pole lobar artery 0.69, inferior pole segmental artery 0. 72 The peak systolic velocity of the left renal artery proximally is 24 centers per second with a resist mark index of 0.71 and distally 60 centers per second with a resistive index of 0.82 The RAR ratio at the left kidney is 0.19 and at the aorta 0.47 The [place] right kidney appears atrophic and echogenic. The RAR ratio at the [place] right kidney is 0.54 and at the aorta 0.81 IMPRESSION: 1. Transplanted right kidney identified in the right renal pelvis with minimal pyelocaliectasis. Th e resistive indices within the transplanted right kidney are within normal limits as are the renal ar yaron aortic ratio Report Dictated By: Tiffani Peoples MD at 01/02/2018 1:23 PM Report E-Signed By: Tiffani Peoples MD at 01/02/2018 1:35 PM WSN:[email or web address]
[2018-01-02 13:59] VITALS: BP 132/82
== END 2018-01-02 14:00 | disposition home or self-care (01) ==
LOC: ER 09:46
DX: N17.9 Acute kidney failure, unspecified (principal); Z94.0 Kidney transplant status
CPT/HCPCS: 36415; 81001; 85007; 85027; 93975; 99283; A9270; 82310; 82374; 82435; 82565; 82947; 84132; 84295; 84520

== ENCOUNTER → 2018-08-06 | Outpatient (REF) | payer MEDICARE ==
[~2018-08-06] MED LIST changes: -LOSA25TA50 PO; +LOSA25TA57 PO
== END ==
LOC: ZZSENDIN 12:23
PROVIDERS: ATTEND Physician Assistant
DX: R79.89 Other specified abnormal findings of blood chemistry (principal)
CPT/HCPCS: 82310; 82374; 82435; 82565; 82947; 84132; 84295; 84520